=== PATIENT | male | born 1975 | race Two or more races ===

== ENCOUNTER 2023-12-11 12:43 | Emergency (ER) | payer SELFPAY ==
[2023-12-11] MEDS: Diphtheria,Pertussis(Acell),Tetanus Vaccine 0.5 ML Syringe IM ONE (13:19)
[2023-12-11] MEDS: Lidocaine 1% 10 ML MDV INJECT ONE (13:20)
== END 2023-12-11 14:52 | disposition home or self-care (01) ==
LOC: JD.ED 12:43
DX: S01.81XA Laceration without foreign body of other part of head, initial encounter (principal); Z23 Encounter for immunization; Y04.2XXA Assault by strike against or bumped into by another person, initial encounter
CPT/HCPCS: 12011; 70450; 70450-26; 70486; 70486-26; 90471; 90715; 99284-25; J3490